=== PATIENT | male | born 1940 | race Caucasian/White ===

== ENCOUNTER 2018-04-02 11:38 | Day surgery (SDC) | payer MEDICARE, OTHER ==
[~2018-04-02] VITALS: Ht 177.8 cm; Wt 81.8 kg
[~2018-04-02 11:38] MED LIST: ASPI81CH PO; ATOR10; ATOR10 PO; Advair Hfa 230-12 GM INH; CALCIUM WITH V1 EACH PO; CHOL10002; CIPR500 PO; Dicyclomine HCl10 MG PO; FLUSAL1005; GLUCOSAMINE-MS1 EACH PO; IRON18 MG PO; LOSA50; LOSA50 PO; MELO7.5 PO; Multiple Vitam1 EAC1 PO; OMEP20ER; SYMBACORT INH; VIT1CAPS12 PO; [UNRECOGNIZED DRUG - OTHER]; [UNRECOGNIZED DRUG - OTHER]
== END 2018-04-02 15:52 | disposition home or self-care (01) ==
LOC: ORSCSDS 11:38
PROVIDERS: Surgery
PROC: 0YU60JZ Supplement Left Inguinal Region with Synthetic Substitute, Open Approach (ICD-10-PCS; principal; 2018-04-02 13:00)
DX: K40.90 Unilateral inguinal hernia, without obstruction or gangrene, not specified as recurrent (principal); I10 Essential (primary) hypertension; J44.9 Chronic obstructive pulmonary disease, unspecified; G47.33 Obstructive sleep apnea (adult) (pediatric); J45.909 Unspecified asthma, uncomplicated; Z79.899 Other long term (current) drug therapy; Z79.82 Long term (current) use of aspirin; Z87.891 Personal history of nicotine dependence
CPT/HCPCS: 88302; C1781; J0690; J0744; J1100; J2370; J2405; J3010; J7120

== ENCOUNTER → 2018-12-04 | Outpatient (CLI) | payer MEDICARE, OTHER | END | disposition home or self-care (01) | LOC: LAB SHORT 11:29 → PLD 11:29 | DX: D04.21 Carcinoma in situ of skin of right ear and external auricular canal (principal) | CPT/HCPCS: 88305 ==